=== PATIENT | female | born 1945 | race Caucasian/White ===

== ENCOUNTER 2020-03-24 10:35 | Emergency (ER) | payer MEDICARE, OTHER, SELFPAY ==
[2020-03-24 10:52] VITALS: BP 129/69; PULSE 88; RESP 18; TEMP 36.3; O2SAT 99; BMI 22.4
--- NOTE | 2020-03-24 11:04 | W.ED.EXTPRO ---
HPI - Extremity Problem General: Chief complaint: Extremity Problem,Nontraumatic Stated complaint: FLANK/HIP PAIN/INJURY Time Seen by Provider: 03/24/20 11:03 Source: patient Mode of arrival: ambulatory Limitations: no limitations History of Present Illness: HPI Narrative: 74-year-old female comes in with right groin pain. Patient reports pain starts when she stands up to for start walking and kind seems like it improves a little bit. Patient does have some significant discomfort in that area. Patient appears well. Patient appears in no acute distress. Review of Systems General: Reports: 10 or more systems reviewed and unremarkable except in HPI and below Musc: Reports: other (Right hip/groin pain.) Physical Exam Const: COMMON NORMALS: no acute distress and patient oriented x3 GENERAL APPEARANCE: cooperative HENMT: COMMON NORMALS: normocephalic and Normal external nose present HEAD & SCALP: normal to inspection and normocephalic NOSE: Normal external nose present MOUTH: Normal oral and palatal mucosa present THROAT: posterior oropharynx normal Neck/C-Spine: COMMON NORMALS: full ROM Chest: COMMONS NORMALS: normal inspection of the chest Resp: COMMON NORMALS: normal respiratory effort EFFORT & INSPECTION: Yes able to speak in complete sentences Cardio: COMMON NORMALS: regular rate and regular rhythm RATE: regular rate RHYTHM: regular rhythm GI: COMMON NORMALS: non-tender Back/Pelvis: COMMON NORMALS: thoracic and lumbar spine normal to inspection Extremity: NARRATIVE EXTREMITY EXAM: Patient has tenderness to the right groin area some decreased range of motion of the hip. Neuro: COMMON NORMALS: patient oriented x3 and moves all extremities Psych: COMMON NORMALS: mental status grossly normal and cooperative Skin: COMMON NORMALS: no rashes or lesions noted GENERAL SKIN EXAM: no rashes or lesions noted Course Vital Signs: Vital signs: Vital Signs Temperature 97.3 F L 03/24/20 10:52 Pulse Rate 79 03/24/20 12:14 Respiratory Rate 18 03/24/20 12:14 Blood Pressure 115/67 03/24/20 12:14 Pulse Oximetry 96 03/24/20 12:14 MDM - Extremity (Nontraumatic) MDM Narrative: Medical decision making narrative: 74-year-old female comes in today with groin pain.. Patient denied any falls or injuries. Exam noted tenderness in the right anterior groin area. Patient was weightbearing. Differential diagnosis includes fracture, sprain, degenerative joint disease. X-ray noted nondisplaced fractures of the right superior ischial ramus and right inferior pubic ramus. Patient did not recall injuring herself. Patient does do a lot of activity climbing ladders and helping move furniture often. Reviewed exam with patient with recommendations for treatment and follow-up. Patient reported understanding and agreed to plan. Discharge Plan Discharge Patient Disposition: Home Clinical Impression: Closed pelvic fracture Qualifiers: Encounter type: initial encounter Pelvic bone location: unspecified part of pelvis Fracture alignment: nondisplaced Qualified Code(s): S32.9XXA - Fracture of unspecified parts of lumbosacral spine and pelvis, initial encounter for closed fracture Condition: Stable Prescriptions: No Action No Known Home Medications RF: 0 Discharge Orders: Discharge ED (Routine); Ordered 03/24/20 Ordered By: Guanako Gilliland Referrals: Adriana Dyer MD [Primary Care Provider] - Discharge Diet: Usual diet Discharge Activity: Limit activity as instructed Patient Instructions: Pelvic Fracture (ED) Activity Restrictions/Additional Instructions: Maintain light activity as tolerated. Use acetaminophen for pain. Drink plenty of water. No climbing ladders or heavy lifting until pain resolves. It will take at least 8 weeks for healing. I recommend following up with orthopedist for further evaluation. Return to emergency department for new concerns. Coding Level of Care Code ED Home Service Consultant for [employer] Exam Comprehensive
--- NOTE | 2020-03-24 11:17 | XRR_ITS ---
PROCEDURE INFORMATION: Exam: XR Right Hip with Pelvis when Performed Exam date and time: 03/24/2020 11:18 AM Age: 74 years old Clinical indication: Pain; Other: RT groin TECHNIQUE: Imaging protocol: XR Right hip with pelvis when performed. Views: 2 or 3 views. COMPARISON: No relevant prior studies available. FINDINGS: Bones/joints: There is a nondisplaced fracture through the right superior ischial ramus and the right inferior pubic ramus. The proximal right femur, acetabulum and hip joint are intact. Soft tissues: Unremarkable. XR/XR hip RT 2-3V wo/w pel* [id number] IMPRESSION: Nondisplaced fractures of the right superior ischial ramus and right inferior pubic ramus.
[2020-03-24 12:14] VITALS: BP 115/67; PULSE 79; RESP 18; O2SAT 96
[2020-03-24 13:04] VITALS: BP 115/67; PULSE 76; RESP 18; TEMP 36.6; O2SAT 98
--- NOTE | 2020-03-25 08:19 | DCPLANNER ---
Addendum entered by Faby Vega 04/08/20 08:50: Ortho stated that when patient was contacted to schedule an appointment that she was feeling much better and did not want an appointment at this time. Patient will contact clinic when she would like an appointment. Original Note: food and beverage manager had message to schedule a follow up appointment for patient with ortho. food and beverage manager called the ortho clinic, spoke with Yadira, gave clinic patients information. food and beverage manager was told that patients information would be printed and reviewed. Clinic will call patient with appointment information.
== END 2020-03-24 13:07 | disposition home or self-care (01) ==
PROVIDERS: Emergency Provider Nurse Practitioner Family; PCP Family Medicine
DX: S32.9XXA Fracture of unspecified parts of lumbosacral spine and pelvis, initial encounter for closed fracture (principal); X58.XXXA Exposure to other specified factors, initial encounter
CPT/HCPCS: 12345; 73502; 99281; 99282

== ENCOUNTER → 2022-11-04 14:09 | Outpatient (BNVA) | payer MEDICARE, SELFPAY | PROVIDERS: PCP Family Medicine; Visit Provider Nurse Practitioner Family | DX: R53.83 Other fatigue (principal); Z13.6 Encounter for screening for cardiovascular disorders | CPT/HCPCS: 80053; 80061; 82306; 82607; 82746; 83735; 84443; 85025 ==

== ENCOUNTER → 2023-01-06 12:53 | Outpatient (BNVA) | payer MEDICARE, SELFPAY | PROVIDERS: PCP Nurse Practitioner Family; Visit Provider Dermatology | DX: L82.1 Other seborrheic keratosis (principal); L81.4 Other melanin hyperpigmentation; D22.39 Melanocytic nevi of other parts of face; L72.0 Epidermal cyst | CPT/HCPCS: 99213 ==